=== PATIENT | female | born 1985 | race American Indian/Alaskan Native ===

== ENCOUNTER 2016-11-10 09:47 | Emergency (ER) | payer SELFPAY ==
--- NOTE | 2016-11-10 10:31 | Emergency Department Report ---
Chief Complaint: Abdominal Pain Stated Complaint: RIGHT SIDE ABD PAIN Time Seen by Provider: 11/10/16 10:28 - HPI History of Present Illness: Pt c/o abd pain x 2 weeks. PT states the pain has migrated to her R flank. PT thought she might be but she went to the doctor and had a negative test - ROS Review of Systems: + nausea - changes in menstrual cycle - Exam Physical Exam: pt's abd is soft and non tender MSE screening note: Focused history and physical exam performed. Due to findings the following was ordered: labs ED Disposition for MSE Condition: Stable
[2016-11-10 11:05] LABS: Basophils % (Auto) 1.1 % (0.0-1.8); Eosinophils % (Auto) 1.7 % (0.0-4.3); Hematocrit 40.1 % (30.3-42.9); Hemoglobin 13.2 gm/dl (10.1-14.3); Mean Corpuscular HGB Conc 33 % (30-34); Mean Corpuscular Hemoglobin 29 pg (28-32); Mean Corpuscular Volume 89 fl (79-97); Platelet Count 319 K/mm3 (140-440); Red Blood Count 4.51 M/mm3 (3.65-5.03); Red Cell Distribution Width 13.5 % (13.2-15.2); White Blood Count 8.9 K/mm3 (4.5-11.0)
[2016-11-10 11:20] LABS: Alanine Aminotransferase 20 units/L (7-56); Albumin/Globulin Ratio 1.2 %; Alkaline Phosphatase 68 units/L (35-129); Anion Gap 17 mmol/L; BUN/Creatinine Ratio 13.75; Blood Urea Nitrogen 11 mg/dL (7-17); Calcium 8.5 mg/dL (8.4-10.2); Carbon Dioxide 25 mmol/L (22-30); Chloride 98.7 mmol/L (98-107); Glucose 84 mg/dL (65-100); Lipase 29 units/L (13-60); Potassium 3.7 mmol/L (3.6-5.0); Sodium 137 mmol/L (137-145); Total Protein 7.3 g/dL (6.3-8.2)
[2016-11-10 12:35] LABS: Bacteria,Urine 2+ /HPF (Negative); Bilirubin,Urine NEG (Negative); Blood,Urine MOD (Negative); Ketones,Urine 20 mg/dL (Negative); Leukocyte Esterase,Urine LG (Negative); Mucus,Urine 1+ /HPF; Nitrite,Urine POS (Negative); Urobilinogen,Urine < 2.0 mg/dL (<2.0)
[2016-11-10 12:45] LABS: WBC,Urine > 182.0 /HPF (0.0-6.0)
[2016-11-10] MEDS ORDERED: NACL ONE (14:01)
[2016-11-10] MEDS ORDERED: ZOFRAN IV ONE (14:39)
--- NOTE | 2016-11-10 15:49 | Cat Scan Report ---
CT ABDOMEN AND PELVIS WITH CONTRAST INDICATION: Abdominal pain. COMPARISON: None similar at this institution. FINDINGS: Abdomen and pelvis CT performed following intravenous administration of 100 cc of Omnipaque 300. LUNG BASES: Slight nonspecific air filled distal esophageal prominence. Top normal heart size. ABDOMEN: Large staghorn calculus in the right kidney estimated at approximately 4 x 2.5 cm as on axial images 29-36, series 2, extending into the renal pelvis. Slight right renal cortical scarring may also be present. No hydronephrosis. Liver, spleen, gallbladder, pancreas, adrenals, aorta and IVC within normal limits. Nonopacified GI tract evaluation limited, though grossly nonobstructive. No ascites or definite significant adenopathy. PELVIS: Nonspecific lower uterine segment/cervical soft tissue fullness measuring up to approximately 4.5 cm as on axial images 74-81. Otherwise unremarkable uterus, adnexa/ovaries, urinary bladder and the rectosigmoid. No free fluid or significant adenopathy. Innumerable bilateral gluteal nodular soft tissue densities presumed iatrogenic/injection related. L5-S1 disc narrowing also possible. CONCLUSION: 1. Large right renal staghorn calculus noted, as described. No hydronephrosis. 2. Nonspecific lower uterine segment/cervical fullness, inadequately characterized. Please correlate. 3. Various other incidental findings, as above. Thank you for the opportunity to participate in this patient's care.
[2016-11-10 17:46] VITALS: BP 125/74
--- NOTE | 2016-11-10 21:43 | Emergency Department Report ---
Entered by THAD FOFANA, acting as scribe for HANSEL SAAVEDRA NP. ED Abdominal Pain HPI - General Chief Complaint: Abdominal Pain Stated Complaint: RIGHT SIDE ABD PAIN Time Seen by Provider: 11/10/16 10:28 Source: patient Mode of arrival: Ambulatory Limitations: No Limitations - History of Present Illness Initial Comments: This is a 31 y/o female, nontoxic, well nourished in appearance, no acute signs of distress with no significant PMHx presents to the ED c/o right sided abdominal pain/ right flank pain that began 1 month ago, worsening 3 days ago. Rates pain an 8/10 in severity, which she describes as cramping in quality. Aggravated with movement and alleviated with nothing. Patient denies nausea, constipation, vaginal bleeding, vaginal discharge, hematuria, fever, chills, chest pain, SOB, FONSECA or dizziness, numbness, tingling. Patient has been having dysuria and urinar frequency x 1 month. Patient states she believed she might be , but she followed-up with a PCP and had a negative test. LMP 11/08/2016. NKDA. ALEMAN Complaint: abdominal pain, flank pain (right) Onset/Timin -: week(s) Location: RUQ, R flank Radiation: none Migration to: no migration Severity: severe Severity scale (0 -10): 8 Quality: cramping Consistency: constant Improves With: nothing Worsens With: movement Associated Symptoms: denies other symptoms, dysuria. denies: nausea, vomiting, diarrhea, fever, chills, constipation, hematemesis, hematochezia, melena, hematuria, anorexia, syncope - Related Data LMP Date: 11/08/16 LMP (females 10-50): last week Previous Rx's Medication Instructions Recorded Last Taken Type Ciprofloxacin [Ciprofloxacin ORAL 500 mg PO Q12H #14 ml 11/10/16 Unknown Rx LIQ] Allergies Allergy/AdvReac Type Severity Reaction Status Date / Time No Known Allergies Allergy Unverified 11/10/16 13:21 ED Review of Systems Comment: All other systems reviewed and negative Constitutional: denies: chills, diaphoresis, fever, weakness Eyes: denies: eye pain, eye discharge, vision change ENT: denies: ear pain, throat pain Respiratory: denies: cough, orthopnea, shortness of breath, SOB with exertion, SOB at rest, stridor, wheezing Cardiovascular: denies: chest pain, palpitations, dyspnea on exertion, orthopnea , edema, syncope, paroxysmal nocturnal dyspnea Endocrine: no symptoms reported Gastrointestinal: abdominal pain (right sided/ RT flank). denies: nausea, vomiting, diarrhea, constipation, hematemesis, melena, hematochezia Genitourinary: denies: urgency, dysuria, frequency, hematuria, discharge, abnormal menses, dyspareunia Musculoskeletal: denies: back pain, joint swelling, arthralgia, myalgia Skin: denies: rash, lesions Neurological: denies: headache, weakness, numbness, paresthesias Psychiatric: denies: anxiety, depression Hematological/Lymphatic: denies: easy bleeding, easy bruising ED Past Medical Hx - Past Medical History Previous Medical History?: No - Surgical History Past Surgical History?: No - Family History Family history: no significant - Social History Smoking Status: Current Every Day Smoker Substance Use Type: None - Medications Home Medications: Home Medications Medication Instructions Recorded Confirmed Last Taken Type Ciprofloxacin [Ciprofloxacin ORAL 500 mg PO Q12H #14 ml 11/10/16 Unknown Rx LIQ] ED Physical Exam - General Limitations: No Limitations General appearance: alert, in no apparent distress - Head Head exam: Present: atraumatic, normocephalic - Eye Eye exam: Present: normal appearance, PERRL, EOMI. Absent: scleral icterus, conjunctival injection, nystagmus, periorbital swelling, periorbital tenderness Pupils: Present: normal accommodation - ENT ENT exam: Present: normal exam, normal orophraynx, mucous membranes moist, TM's normal bilaterally, normal external ear exam - Neck Neck exam: Present: normal inspection, full ROM. Absent: tenderness, meningismus, lymphadenopathy, thyromegaly - Respiratory Respiratory exam: Present: normal lung sounds bilaterally. Absent: respiratory distress, wheezes, rales, rhonchi, stridor, chest wall tenderness, accessory muscle use, decreased breath sounds, prolonged expiratory - Cardiovascular Cardiovascular Exam: Present: regular rate, normal rhythm, normal heart sounds. Absent: bradycardia, tachycardia, irregular rhythm, systolic murmur, diastolic murmur, rubs, gallop - GI/Abdominal GI/Abdominal exam: Present: soft, normal bowel sounds. Absent: distended, tenderness, guarding, rebound, rigid - Expanded GI/Abdominal Exam Expanded GI/Abdominal exam: Absent: psoas sign, obturator sign, heel tap sign, Paez's sign, Rovsing's sign, tenderness at Mcburney's Point, ascites - Rectal Rectal exam: Present: deferred - Extremities Exam Extremities exam: Present: normal inspection, full ROM, normal capillary refill. Absent: tenderness, pedal edema, joint swelling, calf tenderness - Back Exam Back exam: Present: full ROM, tenderness, CVA tenderness (R). Absent: normal inspection, CVA tenderness (L), muscle spasm, paraspinal tenderness, vertebral tenderness - Neurological Exam Neurological exam: Present: alert, oriented X3, CN II-XII intact, normal gait, reflexes normal. Absent: motor sensory deficit - Psychiatric Psychiatric exam: Present: normal affect, normal mood - Skin Skin exam: Present: warm, dry, intact. Absent: rash ED Course Vital Signs 11/10/16 10:28 Temperature 98.2 F Pulse Rate 70 Respiratory 16 Rate Blood Pressure 127/82 O2 Sat by Pulse 99 Oximetry - Reevaluation(s) Reevaluation #1: 11/10/16 15:07 Patient is able speak full sentences with no signs of distress. - Consultations Consultation #1: 11/10/16 16:37 Dr. Shields left and Dr. Ramirez took over. Dr. Ramirez was consulted about patients exam, labs and Ct findings. Agrees to the plan of care and urology consult. Consultation #2: 11/10/16 17:37 Sriram Borrero (urology) consulted about patients exam, labs, and CT findings and stated discharge with for Cipro x7 days with follow-up. ED Medical Decision Making - Lab Data Result diagrams: 11/10/16 10:48 11/10/16 10:48 - Medical Decision Making ED course; this is a 31-year-old female that presents with UTI versus pyelonephritis Patient was examined myself. Patient is stable. UA indicates elevated WBCs. Positive CVA tenderness. CT scan has been obtained with contrast with negative findings of any abnormalities. Patient notified of CT findings indicates large right renal calculus, no hydronephrosis.. Patient was instructed to follow-up with a urology/primary care doctor in 24 hours or if symptoms worsen return to emergency room as soon as possible. Patient received ciprofloxacin 7 days at the time of discharge. At time time of discharge, the patient does not seem toxic or ill in appearance. No acute signs of distress noted. Patient agrees to discharge treatment plan of care. No further questions noted by the patient. Dr. Ramirez up and Dr. Lugo has been consulted about labs, exam, and CT findings. Dr. Lugo stated follow-up with Cipro discharge. ED Disposition Clinical Impression: UTI (urinary tract infection), Pyelonephritis, Staghorn calculus Disposition: TO HOME OR SELFCARE Is pt being admited?: No Does the pt Need Aspirin: No Condition: Stable Instructions: Ciprofloxacin (By mouth), Urinary Tract Infection in Women (ED), Acute Pyelonephritis (ED), Flank Pain (ED), Kidney Stones (ED) Additional Instructions: Follow-up with your Dr. Lugo (urology)/primary care doctor in 24 hours or if symptoms worsen return to emergency room as soon as possible. Take full course of antibiotics and was prescribed. Prescriptions: Ciprofloxacin [Ciprofloxacin ORAL LIQ] 500 mg PO Q12H #14 ml Referrals: [facility] [Outside] - 3-5 Days [facility] [Outside] - 3-5 Days HEVER ERICKSON MD [Staff Physician] - 3-5 Days SRIRAM LUGO MD [Staff Physician] - 24 Hours PRIMARY CAREMD [Primary Care Provider] - 24 Hours Forms: Work/School Release Form(ED) This documentation as recorded by the BRIGIDO [email or web address] JASMINE,accurately reflects the service I personally performed and the decisions made by ,HANSEL SAAVEDRA, [employer] OPERATOR.
== END 2016-11-10 17:47 | disposition home or self-care (01) ==
LOC: ED 09:47
DX: N39.0 Urinary tract infection, site not specified (principal); N12 Tubulo-interstitial nephritis, not specified as acute or chronic; N20.0 Calculus of kidney; F17.210 Nicotine dependence, cigarettes, uncomplicated
CPT/HCPCS: 36415; 74177; 80053; 81001; 83690; 84703; 85025; 87076; 87086; 87186; 96374; 99284; J2405; Q9967